=== PATIENT | male | born 1985 | race Caucasian/White ===

== ENCOUNTER 2023-07-30 14:54 | Emergency (ER) | payer BC, OTHER ==
[~2023-07-30] VITALS: Ht 175.3 cm; Wt 89.8 kg
[2023-07-30] MEDS ORDERED: ONDANSETRON HCL/PF - ER 4 MG/2 ML VIAL IV ONE (16:00)
[2023-07-30] MEDS ORDERED: IV NS 0.9% 1,000 ML BAG IV ONE (16:00)
[2023-07-30] MEDS ORDERED: ONDANSETRON HCL/PF 4 MG/2 ML VIAL ONE (16:49)
[2023-07-30] MEDS ORDERED: ONDA4TAB11 PO (19:20)
[2023-07-30 19:28] VITALS: BP 167/119; TEMP 98.4; O2SAT 100
== END 2023-07-30 19:29 | disposition home or self-care (01) ==
LOC: ER 15:17
DX: R11.2 Nausea with vomiting, unspecified (principal); Z60.2 Problems related to living alone
CPT/HCPCS: 99283; 96374; 96361; J2405; J7030